=== PATIENT | female | born 1950 | race Caucasian/White ===

== ENCOUNTER 2021-03-18 13:36 | Emergency (ER) | payer MEDICARE, BC ==
[~2021-03-18] VITALS: Ht 170.2 cm; Wt 54.5 kg
[2021-03-18 14:04] VITALS: BP 121/71
== END 2021-03-18 15:25 | disposition home or self-care (01) ==
LOC: ER 13:37
DX: Z20.822 Contact with and (suspected) exposure to COVID-19 (principal)
CPT/HCPCS: 87635; 99283; C9803